=== PATIENT | female | born 1955 | race Caucasian/White ===

== ENCOUNTER 2016-05-02 18:00 | Observation (INO) | payer OTHER ==
[~2016-05-02] VITALS: Ht 175.3 cm; Wt 115.9 kg
[2016-05-02] MEDS ORDERED: ASPIRIN 81 MG CHEW TAB ONE (19:13)
[2016-05-02] MEDS ORDERED: MAGNEVIST 20ML IV ONE (21:09)
[2016-05-02 22:14] VITALS: BP_SYST 167; RESP 19; TEMP 98.5
[2016-05-02 22:15] VITALS: Ht 175.3 cm; Wt 115.9 kg
[2016-05-02 23:00] VITALS: BP_SYST 138; RESP 19; TEMP 97.9
[2016-05-03] VITALS (9 sets, daily range): BP systolic 107–133; RESP 19–20; TEMP 97.7–98.7
[2016-05-03] MEDS ORDERED: TRAMADOL 50 MG TAB PO PRN (08:40)
[2016-05-03] MEDS ORDERED: LEVOTHYROXINE 0.112 MG TAB PO SCH (08:41)
[2016-05-03] MEDS: [UNRECOGNIZED DRUG - REMARK] XX SCH ×2 (08:42→16:36)
[2016-05-03] MEDS: METAXALONE 800 MG PO SCH ×2 (09:00→16:00)
[2016-05-03] MEDS ORDERED: ASPIRIN 81 MG CHEW TAB PO SCH (09:00)
[2016-05-03] MEDS ORDERED: METOPROLOL XL 100 MG TAB PO SCH (09:00)
[2016-05-03] MEDS ORDERED: TRIAMTER/HCTZ 37.5/25MG TAB PO SCH (09:00)
== END 2016-05-03 14:03 | disposition home or self-care (01) ==
LOC: ENRESERVDT → ENRESERVTM → ER 18:00 → EMR 21:08 → ENPENDDIS 21:08 → PCU2 22:06
PROVIDERS: ADMIT Internal Medicine; ATTEND Internal Medicine
CPT/HCPCS: 70450; 70544; 70548; 70553; 71010; 72141